=== PATIENT | female | born 1990 ===

== ENCOUNTER 2024-08-30 22:43 | Inpatient (IN) | payer BC ==
[2024-08-30] MEDS ORDERED: Carboprost Tromethamine 250 MCG/1 ML Amp IM PRN (23:20)
[2024-08-30] MEDS ORDERED: Sodium Chloride 0.9% 10 ML Syringe FLUSH PRN (23:20)
[2024-08-30] MEDS ORDERED: Acetaminophen 325 MG Tab PO PRN (23:20)
[2024-08-30] MEDS ORDERED: Misoprostol 100 MCG Tab RECTAL PRN (23:20)
[2024-08-30] MEDS ORDERED: Methylergonovine 0.2 MG/1 ML Amp IM PRN (23:20)
[2024-08-30] MEDS ORDERED: Tranexamic Acid 1,000 MG in Sodium Chloride 0.9% 100 ML IV PRN (23:20)
[2024-08-30] MEDS ORDERED: Ondansetron 4 MG/2 ML SDV IVPUSH PRN (23:20)
[2024-08-30 23:30] LABS: HEMATOCRIT 33.6 % (37.0-47.0); HEMOGLOBIN 10.8 g/dL (12.0-16.0); MEAN CORPUSCULAR HEMOGLOBIN 27.9 pg (27.0-34.0); MEAN CORPUSCULAR HGB CONC 32.1 g/dL (33.0-35.0); MEAN CORPUSCULAR VOLUME 86.8 fL (80-100); RED BLOOD CELL COUNT 3.87 10^6/uL (4.2-5.4); WHITE BLOOD CELL COUNT,WBC 15.2 10^3/uL (5.0-10.0)
[2024-08-30] MEDS ORDERED: Oxytocin/Lactated Ringers 30 UNIT/500 ML BAG IV SCH (23:30)
[2024-08-31] MEDS: Lactated Ringers 1,000 ML IV SCH (00:30)
[2024-08-31] MEDS: Oxytocin/Normal Saline 30 UNIT/500 ML BAG IV SCH (02:03)
[2024-08-31] MEDS ORDERED: Simethicone 80 MG Tab.Chew PO PRN (02:13)
[2024-08-31] MEDS ORDERED: Methylergonovine 0.2 MG Tab PO PRN (02:13)
[2024-08-31] MEDS ORDERED: Oxytocin 10 Units/1 ML SDV IM PRN (02:13)
[2024-08-31] MEDS ORDERED: Witch Hazel Medicated Pads 100/Jar TOP PRN (02:13)
[2024-08-31] MEDS ORDERED: Docusate Sodium 100 MG Cap PO PRN (02:13)
[2024-08-31] MEDS ORDERED: Benzocaine/Menthol 20%-0.5% Spray 78 GM Cannister TOP PRN (02:13)
[2024-08-31] MEDS: Acetaminophen 325 MG Tab PO PRN (04:45)
[2024-08-31] MEDS: Lidocaine 1% 30 ML SDV INJECT ONE (05:12)
[2024-08-31] MEDS: Ibuprofen 800 MG Tab PO SCH (05:12)
[2024-08-31] MEDS: Lactated Ringers 1,000 ML IV ONE (05:12)
[2024-08-31] MEDS: Prenatal Multivitamin with Calcium/Folic Acid/Iron Tab PO SCH (08:07)
== END 2024-09-01 09:30 | disposition home or self-care (01) | DRG 560 ==
LOC: DL.OBCHECK 22:43 → DL.OB 23:21 → OBSVTOIN 08-31 01:58
PROVIDERS: ADMIT Family Medicine; ATTEND Family Medicine
PROC: 10E0XZZ Delivery of Products of Conception, External Approach (ICD-10-PCS; principal; 2024-08-31)
DX: O42.02 Full-term premature rupture of membranes, onset of labor within 24 hours of rupture (principal); Z37.0 Single live birth; O24.420 Gestational diabetes mellitus in childbirth, diet controlled; O99.02 Anemia complicating childbirth; D64.9 Anemia, unspecified; Z3A.39 39 weeks gestation of pregnancy
CPT/HCPCS: 36415; 59409; 85027; A9270-GY; J2590; J7120